=== PATIENT | female | born 1940 | race Caucasian/White ===

== ENCOUNTER 2023-04-15 13:24 | Emergency (ER) | payer MEDICARE, SELFPAY ==
[2023-04-15 13:40] VITALS: BP 102/51; PULSE 82; RESP 14; TEMP 36.6; O2SAT 100
--- NOTE | 2023-04-15 14:00 | ED.FEMALEGU ---
HPI - Female Genitourinary General Chief complaint: Urogenital-Female Stated complaint: Urinary Problems Time Seen by Provider: 04/15/23 13:55 Source: patient, RN notes reviewed and old records reviewed Mode of arrival: ambulatory Limitations: no limitations History of Present Illness HPI Narrative: 83 year old female who present to [facility] care with complaints of awakening last with chills but did not have a fever. Patient reports that she had yellowish looking loose stools for three days and she didn't take her home medications for 3 days. Patient reports that she has taken her medications for the past 3 days with crackers. Patient reports that her upper abdomen was burning and now it's in her lower abdomen.She denies any present fevers, chills,or sweats or any body aches.Patient has history of breast cancer and is cancer as far as she knows,denies any past colon problems such as colitis or diverticulitis. MD elicited complaint: other (abdominal pain diffuse) Onset (ago): day(s) (5-6 days) Location of symptoms: other (diffuse abdominal pain) Severity scale (1-10): 5 Quality of pain: burning and aching Related Data Home Medications Medication Instructions Recorded Confirmed magnesium 500 mg tablet 500 mg PO DAILY 04/15/23 04/15/23 melatonin 5 mg capsule 5 mg PO HS 04/15/23 04/15/23 montelukast 10 mg tablet 10 mg PO HS 04/15/23 04/15/23 pantoprazole 40 mg tablet,delayed 40 mg PO BID 04/15/23 04/15/23 release raloxifene 60 mg tablet 60 mg PO DAILY 04/15/23 04/15/23 trazodone 100 mg tablet 100 mg PO HS 04/15/23 04/15/23 Allergies Allergy/AdvReac Type Severity Reaction Status Date / Time Sulfa (Sulfonamide Allergy Unknown Unknown Verified 04/15/23 13:38 Antibiotics) tetanus toxoid, adsorbed Allergy Unknown Unknown Verified 04/15/23 13:38 codeine AdvReac Unknown Other Verified 04/15/23 23:03 Review of Systems Review of Systems: CONSTITUTIONAL: Denies fever,positive for chills last week, no sweats. CARDIOVASCULAR: Denies chest pain, palpitations, or edema. RESPIRATORY: Denies cough or dyspnea. GASTROINTESTINAL: positive for abdominal pain,no nausea, vomiting,positive for loose stools diarrhea no blood noted GENITOURINARY: Reports no dysuria, frequency, urgency. Denies flank pain or hematuria, states lower abdominal pain SKIN: Denies rash or itching. MUSCULOSKELETAL: Denies back pain or myalgia. Denies CVA tenderness NEUROLOGIC: Denies headache All systems reviewed & are unremarkable except as noted in HPI and below PMFSH Past Medical History Medical History History of breast cancer Surgical History Surgical History History of left mastectomy Family History Family History Mother Heart attack Breast cancer Father Diabetes mellitus Social History Social History Smoking status: Former smoker Alcohol intake: never Substance use: never Lack of Transportation: No Lack of Food: Never True Current Housing: I Have Housing Concerned About Future Housing: No Difficulty Paying Gas/Electric Bills: No Difficulty Paying for Meds: No Currently Unemployed: No Education: Master's Degree or Higher Difficulty w/ Childcare or Family Care: No Spiritual care concerns: No Comments At time of signature, agree with nursing past medical, surgical, social and family history. There is no relevant family history pertinent to the presenting complaint Exam Narrative: GENERAL: No acute distress. Well-appearing. Well-nourished. Alert and active. HEAD: Normocephalic, atraumatic. EYES: Pupils equal, round reactive to light. Extraocular movements intact. Conjunctivae without redness or drainage. EARS: Tympanic membranes without erythema. TM landmarks intact with good light reflex. Ear canals
== END 2023-04-15 15:54 | disposition short-term general hospital (02) ==
PROVIDERS: Emergency Provider Registered Nurse
DX: R10.11 Right upper quadrant pain (principal); Z87.891 Personal history of nicotine dependence; Z85.3 Personal history of malignant neoplasm of breast
CPT/HCPCS: 81003; 99212; G0463

== ENCOUNTER 2023-04-15 16:17 | Observation (INO) | payer MEDICARE, SELFPAY ==
--- NOTE | ~2023-04-15 | CT_ITS ---
EXAMINATION: CT abdomen pelvis w con DATE: 04/15/2023 19:28 INDICATION: Diffuse abdominal pain. TECHNIQUE: Computed tomography (CT) of the abdomen and pelvis was performed with 100 cc Omnipaque 350 intravenous contrast. The dose-length product was 240.58 mGy-cm. Automated exposure control and iter ative reconstruction technique were employed. COMPARISON: None. FINDINGS: Gallbladder is severely distended with gallbladder wall thickening and gallbladder wall deanna cifications, consistent with porcelain gallbladder. There is trace pericholecystic fluid. There is bi liary dilatation. No definite obstructing stone is identified. There is right middle lobe atelectasis /scarring. There is emphysema. There is a 7 mm right lower lobe nodule, image 15. There is bronchiect asis. There are air-fluid levels throughout the small bowel and colon which may represent ileus or en terocolitis. There is inflammation in the mesentery surrounding the distal colon in the pelvis. The l eft ureter is mildly dilated with urothelial enhancement, suspicious for ascending urinary tract infe ction. There are small subcentimeter hypodensities of the kidneys, too small to characterize, likely cysts. There are bilateral renal cysts. No free air or free fluid. Thickening of the sigmoid colon wi th mild surrounding inflammatory changes. Cannot exclude diverticulitis. There are anterior endplate compression fractures of L1 and L3 which are likely chronic. There is osteoarthritis of the hips. IMPRESSION: 1. Severely distended gallbladder with intramedullary and extrahepatic biliary dilatation. Cannot exc lude cholecystitis. Consider correlation with MRCP examination to exclude underlying obstructing mass . 2: Mildly thickened sigmoid colon with subtle surrounding inflammatory changes in the pelvis. Conside r acute cholecystitis. 3: Mild left hydronephrosis with urothelial enhancement, suspicious for ascending urinary tract infec tion. 4: Right lower lobe nodule measuring 7 mm. Recommend follow-up low dose CT chest in 6 months. Reviewed, dictated and finalized at location A. IMPRESSION: 1. Severely distended gallbladder with intramedullary and extrahepatic biliary dilatation. Cannot exclude cholecystitis. Consider correlation with MRCP examin ation to exclude underlying obstructing mass. 2: Mildly thickened sigmoid colon with subtle surrounding inflammatory changes in the pelvis. Consider acute cholecystitis. 3: Mild left hydronephrosis with urothelial enhancement, suspicious for ascendi ng urinary tract infection. 4: Right lower lobe nodule measuring 7 mm. Recommend follow-up low dose CT ches t in 6 months.
--- NOTE | ~2023-04-15 | MR_ITS ---
EXAMINATION: MR MRCP wo/w con/w 3D wo ind DATE: 04/16/2023 10:07 INDICATION: Evaluate dilated biliary ducts . Cholecystitis. TECHNIQUE: Magnetic resonance imaging (MRI) of the abdomen was performed without and with 13 mL Multi caden intravenous contrast. Sequences included coronal T2-weighted SS-FSE, coronal T2-weighted FS SS- FSE, coronal T2-weighted FS FIESTA, axial T2-weighted FS FIESTA, axial T2-weighted FIESTA, sagittal T 2-weighted SS-FSE, axial T1-weighted dual-echo FSPGR, axial T2-weighted SS-FSE, axial T1-weighted LAV A, axial T2-weighted STIR FSE. Thick-slab T2-weighted FRFSE-XL images were obtained for magnetic reso nance cholangiopancreatography (MRCP). Rotating maximum intensity projection 3-D reconstructions of t he volumetric data were created by the technologist. Postcontrast sequences included a time course of axial T1-weighted LAVA. COMPARISON: CT abdomen and pelvis dated 04/15/2023 FINDINGS: ABDOMEN MRI: Heart size is normal. Again seen is a wedge-shaped region of consolidation in the right middle lobe. No pericardial or pleural effusion. Multiple T2 hyperintense nonenhancing cysts measurin g 9 mm at the posterior aspect of segment 6 of the liver measuring up to 12 mm at the lateral aspect of the spleen, 1.8 cm at the right kidney and 6 mm at the left kidney. Pancreas and bilateral adrenal glands are normal. Marked dilation the gallbladder which measures 11.6 x 5.5 x 6.0 cm. There is some dependently layering sludge in the gallbladder with mild diffuse gallbladder wall thickening and min imal pericholecystic fluid consistent with acute cholecystitis. No dilated bowel to suggest obstructi on. Diverticulum arising from the third portion of the duodenum. Multiple diverticula are seen along the sigmoid colon without adjacent from trace stranding to suggest diverticulitis. No pathologically enlarged abdominal lymphadenopathy. Retroperitoneal edema tracking caudally along the anterior margin of the left psoas muscle and into the mesenteric fat in the medial posterior pelvis. Correlation wit h prior CT demonstrates thin rim of peripheral enhancement extending caudally along a tubular structu re within the region of edema which could represent either urothelial enhancement along the left uret er or small amount of contrast opacified blood at the periphery of a thrombosed left inferior mesente carli vein. Mild lumbar spondylosis with Schmorl's nodes along the inferior endplates of L2 and L3. Nor mal bone marrow signal throughout. ABDOMEN MRCP: The common hepatic duct is dilated to 13 mm and the common bile duct to 9 mm. There is a meniscus sig n with 5-6 mm low signal intensity intraluminal filling defect at the distal common bile duct suggest ing either an obstructing gallstone or sludge ball. Additional dilation of the cystic duct and mild d ilation of the left and right hepatic ducts but without significant intrahepatic biliary ductal dilat ion. The main pancreatic duct is dilated to 5-6 mm . IMPRESSION: 1. Obstructing stone versus sludge ball at the distalmost common bile duct with moderate extrahepatic biliary ductal dilation, mild dilation of the main pancreatic duct and likely secondary acute cholec ystitis. Consider ERCP for biliary decompression. 2. Left paraspinal retroperitoneal edema extending from the abdomen into the posterior pelvis surroun ding a peripheral enhancing tubular structure on prior CT which could represent either urothelial enh ancement along the ureter in the setting of ascending urinary tract infection or potentially a thromb osed inferior mesenteric vein. Favor the latter but would correlate with urinalysis. 3. Consolidation in the right middle lobe which could represent atelectasis or pneumonia. 4. Sigmoid diverticulosis. Reviewed, dictated and finalized at location A. 15:
--- NOTE | ~2023-04-15 | XR_ITS ---
XR ERCP ERCP procedure TECHNIQUE: Fluoroscopy used during ERCP procedure performed by [Tigre Emerson MD] on 04/17/2023. 134 seconds of fluoroscopy with 1 images captured. FINDINGS: Correlate with procedure note. IMPRESSION: Fluoroscopy used during ERCP procedure. Reviewed, dictated and finalized at location A.
[2023-04-15 16:19] VITALS: BP 110/50; PULSE 80; RESP 18; TEMP 36.8; O2SAT 100
[2023-04-15 17:25] VITALS: BP 128/74; PULSE 87; RESP 20; O2SAT 94
[2023-04-15 18:26] LABS: Appearance Urine Clear (Clear); Bacteria Urine None Seen /hpf; Bilirubin Urine Negative (Negative); Blood Urine Negative (Negative); Color Urine Yellow (Yellow); Glucose Urine UA Negative (Negative); Ketones Urine Negative (Negative); Leukocyte Esterase Ur Trace LEU/UL (Negative); Need Manual Microscopic Reviewed; Nitrate Urine Negative (Negative); Protein Urine Negative (Negative); RBC Urine 0-2 /hpf (0-2); Specific Grav Ur 1.004 (1.001-1.035); Squamous Epithelial Cell Urine None seen /hpf (Few); Urobilinogen Urine 0.2 mg/dL (<2.0); WBC Urine 0-5 /hpf; pH Urine 5.5 (5.0-9.0)
[2023-04-15 18:27] LABS: Add Urine Microscopic? YES
[2023-04-15 18:35] LABS: Hematocrit 36.1 % (37.0-47.0); Hemoglobin 11.8 g/dL (12.0-15.0); Immature Platelet Fraction Pct 8.2 % (0.9-11.2); Mean Corpuscular HGB Conc 32.7 g/dl (32-36); Mean Corpuscular Hemoglobin 31.5 pg (26-34); Mean Corpuscular Volume 96.3 fl (80-100); Platelet Count Result 100 k/mm3 (150-375); Red Blood Count 3.75 M/mm3 (4.2-5.4); Red Cell Distribution Width 13.8 % (11.5-14.5); White Blood Count 8.3 K/mm3 (4.5-10.0)
[2023-04-15 18:57] VITALS: BP 102/53; PULSE 70; RESP 16; O2SAT 99
[2023-04-15] MEDS: BELLADONNA ALK/PHENOB ELIX 10 ML, MAG HYDROX/ALUMINUM HYD/SIMETH 30 ML, LIDOCAINE HCL 2... PO (18:58)
[2023-04-15] MEDS: FAMOTIDINE 20 MG TABLET PO (18:58)
[2023-04-15 19:01] LABS: Alanine Aminotransferase 31 U/L (6-35); Albumin Level 3.9 g/dL (3.5-5.1); Alkaline Phosphatase 130 U/L (38-126); Anion Gap 9 mmol/L (8-16); Aspartate Amino Transferase 58 U/L (14-36); Bilirubin,Total 1.5 mg/dL (0.2-1.3); Blood Urea Nitrogen 26 mg/dL (7-17); Calcium 8.9 mg/dL (8.4-10.2); Carbon Dioxide 24 mmol/L (22-30); Chloride 93 mmol/L (98-107); Estimated CRCL calculation 25 ml/min; Estimated Glomerular Filt Rate 43; Glucose 71 mg/dL (65-110); Lipase 55 U/L (23-300); Potassium 4.3 mmol/L (3.4-5.0); Sodium 126 mmol/L (137-145)
[2023-04-15 19:09] LABS: Band Neutrophils Percent 5 % (0-6); Basophils Absolute Manual 0.08 K/mm3 (0.0-0.1); Basophils Percent Manual 1 % (0-1); Monocytes Absolute Manual 0.24 K/mm3 (0.1-0.90); Monocytes Percent Manual 3 % (3-9); Neutrophils Absolute Manual 5.56 K/mm3 (1.7-7.2); Neutrophils Percent Manual 62 % (46-73); Total Cells Counted 100
[2023-04-15 19:10] LABS: Hypochromasia 1+ (NORMAL); Platelet Estimate Decreased (Adequate); Schistocytes None Seen (NORMAL)
--- NOTE | 2023-04-15 21:09 | PM.IMHP ---
H&P: HPI History of Present Illness Date/Time: 04/15/23 21:09 Chief Complaint: Abdominal pain Narrative: This is an 83-year-old female with past medical history significant for history of breast cancer, left mastectomy, patient resides in [place] and she is visiting she presents to the emergency room due to diffuse abdominal pain for the last 4-5 days with no relieved, has had some diarrhea no bright red blood per rectum, no melena, no hematemesis, no fevers no rigors no chills. Patient was found to have an enlarged gallbladder with signs of likely infection. Patient has been admitted for further evaluation management and treatment. EXAMINATION: CT abdomen pelvis w con DATE: 04/15/2023 19:28 INDICATION: Diffuse abdominal pain. TECHNIQUE: Computed tomography (CT) of the abdomen and pelvis was performed with 100 cc Omnipaque 350 intravenous contrast. The dose-length product was 240.58 mGy-cm. Automated exposure control and iterative reconstruction technique were employed. COMPARISON: None. FINDINGS: Gallbladder is severely distended with gallbladder wall thickening and gallbladder wall calcifications, consistent with porcelain gallbladder. There is trace pericholecystic fluid. There is biliary dilatation. No definite obstructing stone is identified. There is right middle lobe atelectasis/scarring. There is emphysema. There is a 7 mm right lower lobe nodule, image 15. There is bronchiectasis. There are air-fluid levels throughout the small bowel and colon which may represent ileus or enterocolitis. There is inflammation in the mesentery surrounding the distal colon in the pelvis. The left ureter is mildly dilated with urothelial enhancement, suspicious for ascending urinary tract infection. There are small subcentimeter hypodensities of the kidneys, too small to characterize, likely cysts. There are bilateral renal cysts. No free air or free fluid. Thickening of the sigmoid colon with mild surrounding inflammatory changes. Cannot exclude diverticulitis. There are anterior endplate compression fractures of L1 and L3 which are likely chronic. There is osteoarthritis of the hips. IMPRESSION: 1. Severely distended gallbladder with intramedullary and extrahepatic biliary dilatation. Cannot exclude cholecystitis. Consider correlation with MRCP examination to exclude underlying obstructing mass. 2: Mildly thickened sigmoid colon with subtle surrounding inflammatory changes in the pelvis. Consider acute cholecystitis. 3: Mild left hydronephrosis with urothelial enhancement, suspicious for ascending urinary tract infection. 4: Right lower lobe nodule measuring 7 mm. Recommend follow-up low dose CT chest in 6 months. Review of Systems Review of Systems: Abdominal pain Constitutional: Constitutional: Denies chills, Denies fever(s) and Denies night sweats Eyes: Eyes: Denies change in vision ENT: Denies dysphagia, Denies vertigo, Denies dizziness and Denies odynophagia Cardiovascular: Cardiovascular: Denies chest pain at rest, Denies lightheadedness, Denies radiating jaw, neck or arm pain and Denies palpitations Respiratory: Respiratory: Denies chest congestion, Denies cough and Denies excessive phlegm production Gastrointestinal: Gastrointestinal: Denies melena, Denies hematochezia, Denies change in stool character, Denies coffee ground emesis, Denies dyspepsia, Denies heartburn, Reports diarrhea, Reports nausea and Reports vomiting Genitourinary: Genitourinary: Reports no additional female genitourinary complaints, Reports as per HPI and Denies dysuria Musculoskeletal: Musculoskeletal: Denies back pain and Denies joint swelling Integumentary/Breasts: Skin/Breast: Denies rash Neurologic: Denies focal weakness and Denies Sensory deficit (Neuro) Psychiatric: Psychiatric: Reports no additional psychiatric complaints and Reports as per HPI Endocrine: Endocrine: Denies cold intolerance, Denies fatigue, Denies heat intolerance and Denies
[2023-04-15 21:23] LABS: Lactic Acid Reflex 1.1 mmol/L (0.7-2.0)
[2023-04-15] MEDS: PIPERACILLN/TAZ 3.375GM/NS50ML 3.375 GM/50 ML BAG IVPB (21:42)
[2023-04-15 21:43] VITALS: BP 96/47; PULSE 84; RESP 16; O2SAT 98
--- NOTE | 2023-04-15 22:12 | ED.ABDPAIN ---
HPI - Abdominal Pain General Chief Complaint: Abdominal Pain Stated Complaint: abd pain Time Seen by Provider: 04/15/23 18:00 History of Present Illness HPI narrative: This is an 83-year-old female, with past history of left breast cancer status postresection, who presents to the emergency department complaining of diffuse burning abdominal pain for the past 6 days. The patient states 6 days ago, she developed subjective fevers and chills that improved however were followed by diffuse burning abdominal pain, rated 5/10. The patient denies any obvious aggravating or alleviating factors. She denies nausea or vomiting or recent trauma. Related Data Home Medications Medication Instructions Recorded Confirmed magnesium 500 mg tablet 500 mg PO DAILY 04/15/23 04/15/23 melatonin 5 mg capsule 5 mg PO HS 04/15/23 04/15/23 montelukast 10 mg tablet 10 mg PO HS 04/15/23 04/15/23 pantoprazole 40 mg tablet,delayed 40 mg PO BID 04/15/23 04/15/23 release raloxifene 60 mg tablet 60 mg PO DAILY 04/15/23 04/15/23 trazodone 100 mg tablet 100 mg PO HS 04/15/23 04/15/23 Allergies Allergy/AdvReac Type Severity Reaction Status Date / Time Sulfa (Sulfonamide Allergy Unknown Unknown Verified 04/15/23 13:38 Antibiotics) tetanus toxoid, adsorbed Allergy Unknown Unknown Verified 04/15/23 13:38 codeine AdvReac Unknown Other Verified 04/15/23 23:03 Review of Systems Review of Systems: CONSTITUTIONAL: Subjective fevers and chills denies sweats. CARDIOVASCULAR: Denies chest pain, palpitations, or edema. RESPIRATORY: Denies cough or dyspnea. GASTROINTESTINAL: Diffuse abdominal pain denies nausea, vomiting, or diarrhea. GENITOURINARY: Denies dysuria or hematuria. SKIN: Denies rash or itching. MUSCULOSKELETAL: Denies back pain, joint pain, or myalgia. NEUROLOGIC: Denies headache, numbness, dizziness, or weakness. PSYCHIATRIC: Denies anxiety or depression. [facility] Past Medical History Medical History History of breast cancer Surgical History Surgical History History of left mastectomy Family History Family History Mother Heart attack Breast cancer Father Diabetes mellitus Social History Social History Smoking status: Former smoker Alcohol intake: never Substance use: never Lack of Transportation: No Lack of Food: Never True Current Housing: I Have Housing Concerned About Future Housing: No Difficulty Paying Gas/Electric Bills: No Difficulty Paying for Meds: No Currently Unemployed: No Education: Master's Degree or Higher Difficulty w/ Childcare or Family Care: No Spiritual care concerns: No Exam Narrative: GENERAL: Well-developed, well-nourished, and in no acute distress. HEAD: Normocephalic, atraumatic. EYES: PERRLA and EOMI. CHEST: Clear to auscultation. No respiratory distress. No wheezes rales or rhonchi HEART: Regular rate and rhythm. No murmur heard. Normal peripheral pulses. ABDOMEN: Soft, diffuse mild abdominal tenderness, greater in the right upper quadrant without rebound or guarding, nondistended, normal active bowel sounds. No CVA tenderness to palpation EXTREMITIES: Normal range of motion. No edema. SKIN: Warm, dry, no rash. NEURO: No focal deficits. Alert and oriented x3. PSYCH: Normal mood and affect. Course Course Emergency Course: 21:12 - CBC demonstrates mild anemia with hemoglobin of 11.8 (unknown baseline). Chemistries demonstrate hyponatremia with sodium of 126 and elevated creatinine of 1.[address] UA unremarkable. CT abdomen pelvis demonstrates changes consistent with acute cholecystitis. I discussed the patient with general surgeon, Dr. Demarco who recommends the patient be made n.p.o., right upper quadrant ultrasound, IV antibiotics
[2023-04-15 22:37] VITALS: BP 103/50; PULSE 79; RESP 16; O2SAT 98
--- NOTE | 2023-04-15 22:53 | ADMGEN ---
This patient, Roxanne Antonio, was admitted to [facility] Surg Room 315-02. Patient/family oriented to hospital policies and general routines including ID bracelet, bed and alarms, visiting hours, pain management, procedures, bathroom and other care routines, personal items, smoking policy, room service/diet, and visiting hours. Information on how to activate the Rapid Response Team has been discussed. Patient/Family are encouraged to report perceived risks to care and to ask questions if they do not understand what they are told or what they should do.
[2023-04-15 23:08] VITALS: BP 113/47; PULSE 61; RESP 14; TEMP 37.4; O2SAT 95
[2023-04-15 23:09] VITALS: BMI 27.2
[2023-04-15] MEDS: LACTATED RINGERS 1,000 ML 125 ML IV CONT (23:27)
[2023-04-16] MEDS: traZODone HCL 50 MG TABLET 100 MG PO (00:53)
[2023-04-16] MEDS: MELATONIN 5 MG TABLET PO ×2 (00:53→20:15)
[2023-04-16 05:55] VITALS: BP 107/42; PULSE 75; RESP 13; TEMP 37.3; O2SAT 94
[2023-04-16 07:26] LABS: Basophils Absolute Auto 0.1 K/mm3 (0.0-0.1); Basophils Percent Auto 0.8 % (0.2-1.2); Eosinophils Percent Auto 0.4 % (0-4.4); Hematocrit 36.1 % (37.0-47.0); Hemoglobin 11.5 g/dL (12.0-15.0); Immature Granulocyte Absolute 0.06 K/mm3 (0.00-0.031); Immature Granulocyte Percent A 0.7 % (0-0.5); Immature Platelet Fraction Pct 6.7 % (0.9-11.2); Lymphocytes Absolute Auto 2.15 K/mm3 (0.9-3.2); Lymphocytes Percent Auto 25.9 % (18.3-44.2); Mean Corpuscular HGB Conc 31.9 g/dl (32-36); Mean Corpuscular Hemoglobin 31.6 pg (26-34); Mean Corpuscular Volume 99.2 fl (80-100); Mean Platelet Volume 11.5 fl (7.4-10.4); Monocytes Absolute Auto 0.9 K/mm3 (0.1-0.6); Monocytes Percent Auto 11.1 % (2.6-8.5); Neutrophils Absolute Auto 5.1 K/mm3 (1.3-6.7); Neutrophils Percent Auto 61.1 % (45.5-73.1); Platelet Count Result 109 k/mm3 (150-375); Red Blood Count 3.64 M/mm3 (4.2-5.4); Red Cell Distribution Width 13.8 % (11.5-14.5); White Blood Count 8.3 K/mm3 (4.5-10.0)
[2023-04-16 07:39] LABS: Anion Gap 11 mmol/L (8-16); Blood Urea Nitrogen 19 mg/dL (7-17); Calcium 8.5 mg/dL (8.4-10.2); Carbon Dioxide 19 mmol/L (22-30); Chloride 101 mmol/L (98-107); Estimated CRCL calculation 29 ml/min; Estimated Glomerular Filt Rate 43; Glucose 67 mg/dL (65-110); Sodium 131 mmol/L (137-145)
[2023-04-16] MEDS: LACTATED RINGERS 1,000 ML 125 ML IV CONT ×2 (07:40→17:01)
[2023-04-16 07:53] LABS: Atypical Lymphocytes Present; Platelet Estimate Decreased (Adequate); Schistocytes None Seen (NORMAL)
--- NOTE | 2023-04-16 09:54 | WPDCN ---
Assessment and Plan Assessment and plan (1) Diffuse abdominal pain: Code(s): R10.84 - Generalized abdominal pain Status: Acute Assessment and Plan: Patient has abnormal imaging of her gallbladder on CT scan. Dilation of bile duct is noted but she has no clinical symptoms suggestive of gallbladder disease. Came in complaining more of lower abdominal pain and there is some suggestion of colitis or diverticulitis of the sigmoid colon. Getting an MRCP of the gallbladder and bile ducts is a good idea and I will go ahead and order that. IV antibiotics for treatment of her colitis. She probably should get a colonoscopy done at some point when she returns to [place]. At this point I have low suspicion she has acute cholecystitis. Will follow. [facility] Data of Consult Date/Time: 04/16/23 09:54 Requesting Physician: Peg Hirsch MD Primary Care Provider: PHYSICIAN NOT ON STAFF Consult Narrative Reason for consult: Abnormal gallbladder findings on CT scan, cholelithiasis, lower abd pain. Narrative: Roxanne Antonio is a 83 year old female visiting from [place] who presents to the emergency room yesterday because of worsening lower abdominal pain. The pain is been going on for couple of weeks and initially was associated with some diarrhea which was nonbloody. She started feel low better so she went had made the trip to visit [place]. She denies have any prior issues with eating. There has been no nausea or vomiting with eating. She has been eating all foods without any pain. She has never had a colonoscopy in the past. Never been treated for or admitted to the hospital for diverticulitis. Which she had normal white blood cell count emergency room and normal liver enzymes. CT scan abdomen pelvis was done showing a very dilated gallbladder with some small gallstones but some dilatation of the intrahepatic and extrahepatic bile ducts. No bile duct stone was seen. There is some calcification of the gallbladder wall but no masses. Radiologist suggested MRCP to exclude mass causing the bile duct dilatation. Had a history of breast cancer but is currently cancer free as far she knows. Review of Systems Review of Systems: The remainder of the review of systems to include constitutional, HEENT, cardiovascular, respiratory, GI, , integumentary, musculoskeletal, endocrine, immunologic, hematologic, psychiatric, and neurologic are all negative except for which is mentioned above in the HPI. [facility] Past Medical History Medical History History of breast cancer Surgical History Surgical History History of left mastectomy Family History Family History Mother Heart attack Breast cancer Father Diabetes mellitus Social History Social History Smoking status: Former smoker Alcohol intake: never Substance use: never Lack of Transportation: No Lack of Food: Never True Current Housing: I Have Housing Concerned About Future Housing: No Difficulty Paying Gas/Electric Bills: No Difficulty Paying for Meds: No Currently Unemployed: No Education: Master's Degree or Higher Difficulty w/ Childcare or Family Care: No Spiritual care concerns: No Meds Home Medications and Allergies Home Medications Medication Instructions Recorded Confirmed Type magnesium 500 mg tablet 500 mg PO DAILY 04/15/23 04/15/23 History melatonin 5 mg capsule 5 mg PO HS 04/15/23 04/15/23 History montelukast 10 mg tablet 10 mg PO HS 04/15/23 04/15/23 History pantoprazole 40 mg tablet,delayed 40 mg PO BID 04/15/23 04/15/23 History release raloxifene 60 mg tablet 60 mg PO DAILY 04/15/23 04/15/23 History trazodone 100 mg tablet 100 mg PO HS 04/15/23 04/15/23 History Allergies Allergy/AdvReac
[2023-04-16] MEDS: PANTOPRAZOLE 40 MG TABLET PO ×2 (10:18→17:02)
[2023-04-16] MEDS: RALOXIFENE HCL (*CHEMO) 60 MG TABLET PO (10:18)
[2023-04-16] MEDS: MAGNESIUM OXIDE 400 MG TABLET PO (10:18)
--- NOTE | 2023-04-16 12:02 | PM.IMPN ---
Progress Note: A&P Assessment and Plan (1) Acute cholecystitis: Code(s): K81.0 - Acute cholecystitis Status: Acute (2) Diffuse abdominal pain: Code(s): R10.84 - Generalized abdominal pain Status: Acute (3) Hyponatremia: Code(s): E87.1 - Hypo-osmolality and hyponatremia Status: Acute Subjective Date/time seen: 04/16/23 12:02 Interval history: No complaints Exam Narrative: Laying in a stretcher Const: General: comfortable, no acute distress, well developed, alert, awake and average body habitus Nutritional Appearance: average body habitus Orientation/consciousness: patient oriented x3 HENMT: Head: normal to inspection, normocephalic and atraumatic Ears: hearing grossly normal bilaterally Face/Nose/Sinus: normal facial exam Face and sinus: normal facial exam Eyes: General: appearance normal, both eyes and all related structures Pupils: Equal, round and reactive pupils present EOM: EOMs intact bilaterally Neck: Neck: full ROM, no lymphadenopathy and no JVD Thyroid: thyroid normal Lymphatic: no lymphadenopathy noted Resp: Effort & Inspection: normal respiratory effort and able to speak in complete sentences Auscultation: clear to auscultation bilaterally Cardio: Jugular venous distension: no JVD Rate: regular rate Rhythm: regular rhythm Heart sounds: S1 normal heart sound present and S2 normal heart sound present GI: Inspection: normal to inspection Other: Gaytan positive : General: Yes deferred Skin: Rashes: no rashes Wounds: no wounds Neuro: General: patient oriented x3, CN's II-XI intact bilaterally and Unable to assess gait Cranial nerves: Yes CN's II-XII intact bilaterally and Yes Equal, round and reactive pupils present Cognition (Neuro): normal cognition Speech: normal speech Gait exam (Neuro): Unable to assess gait Motor exam (neuro): 5/5 motor strength present throughout Extrem: General: normal to inspection, full ROM, no joint enlargement and no pedal edema Objective Data Vital Signs Vital Signs: Vital Signs - 24 hr 04/15/23 16:19 04/15/23 17:25 04/15/23 18:57 Temperature 98.3 F Pulse Rate 80 87 70 Respiratory Rate 18 20 16 Blood Pressure 110/50 L 128/74 102/53 L Pulse Oximetry 100 94 99 Oxygen Delivery Room Air 04/15/23 21:43 04/15/23 22:37 04/15/23 23:08 Temperature 99.4 F Pulse Rate 84 79 61 Respiratory Rate 16 16 14 Blood Pressure 96/47 L 103/50 L 113/47 L Pulse Oximetry 98 98 95 Oxygen Delivery 04/16/23 05:55 Temperature 99.1 F Pulse Rate 75 Respiratory Rate 13 Blood Pressure 107/42 L Pulse Oximetry 94 Oxygen Delivery Intake/Output Intake/Output: Intake & Output 04/13/23 04/14/23 04/15/23 04/16/23 23:59 23:59 23:59 23:59 Intake Total 50 1000 Balance 50 1000 Meds/Results Medications: Active Medications Generic Name Dose Route Start Last Admin Trade Name Freq PRN Reason Stop Dose Admin Acetaminophen 650 mg 04/15/23 21:11 Acetaminophen 325 Mg Tablet PO Q4H PRN Mild Pain (1-3) or Fever Lactated Ringer's 1,000 mls @ 125 mls/hr 04/15/23 21:15 04/16/23 07:40 Lr - Lactated Ringers Iv IV CONT 125 mls/hr .Q8H AALIYAH Administration Magnesium Oxide 400 mg 04/16/23 09:00 04/16/23 10:18 Magnesium Oxide 400 Mg Tablet PO 400 mg DAILY AALIYAH Administration Melatonin 5 mg 04/16/23 00:25 04/16/23 00:53 Melatonin 5 Mg Tablet PO 5 mg HS AALIYAH Administration Montelukast Sodium 10 mg 04/16/23 00:25 04/16/23 00:53 Montelukast Sodium 10 Mg Tablet PO Not Given HS AALIYAH Morphine Sulfate 2 mg 04/15/23 21:11 Morphine Sulfate (*Crx) 4 Mg/Ml Inj IV PUSH Q2H PRN Pain Rated 7-10 Pantoprazole Sodium 40 mg 04/16/23 09:00 04/16/23 10:18 Pantoprazole 40 Mg Tablet PO 40 mg BID AALIYAH Administration Raloxifene HCl 60 mg 04/16/23 09:00 04/16/23 10:18 Raloxifene Hcl (*Chemo) 60 Mg Tablet PO 60 mg DAILY AALIYAH Administrat
[2023-04-16 13:44] VITALS: BP 104/50; PULSE 70; RESP 18; TEMP 37.6; O2SAT 97
[2023-04-16] MEDS: MONTELUKAST SODIUM 10 MG TABLET PO (20:15)
[2023-04-16 21:45] VITALS: BP 110/55; PULSE 84; RESP 17; TEMP 36.7; O2SAT 98
[2023-04-16 21:50] VITALS: O2SAT 97
[2023-04-17] VITALS (10 sets, daily range): BP systolic 109–138; BP diastolic 50–76; PULSE 64–96; RESP 13–20; TEMP 36.6–37.3; O2SAT 94–100
[2023-04-17] MEDS: LACTATED RINGERS 1,000 ML 125 ML IV CONT ×2 (05:21→23:10)
[2023-04-17] MEDS: RALOXIFENE HCL (*CHEMO) 60 MG TABLET PO (09:44)
[2023-04-17] MEDS: PANTOPRAZOLE 40 MG TABLET PO ×2 (09:44→20:19)
[2023-04-17] MEDS: MAGNESIUM OXIDE 400 MG TABLET PO (09:44)
[2023-04-17 10:09] LABS: Alanine Aminotransferase 22 U/L (6-35); Albumin Level 3.1 g/dL (3.5-5.1); Alkaline Phosphatase 98 U/L (38-126); Anion Gap 4 mmol/L (8-16); Aspartate Amino Transferase 27 U/L (14-36); Bilirubin,Total 0.7 mg/dL (0.2-1.3); Blood Urea Nitrogen 12 mg/dL (7-17); Calcium 8.6 mg/dL (8.4-10.2); Carbon Dioxide 27 mmol/L (22-30); Chloride 103 mmol/L (98-107); Estimated CRCL calculation 34 ml/min; Estimated Glomerular Filt Rate 53; Glucose 94 mg/dL (65-110); Potassium 3.9 mmol/L (3.4-5.0); Sodium 134 mmol/L (137-145)
--- NOTE | 2023-04-17 11:08 | PM.PNGS ---
Progress Note: A&P Assessment and Plan (1) Acute cholecystitis: Code(s): K81.0 - Acute cholecystitis Status: Acute Assessment and Plan: Patient has a normal white blood cell count and only some mild pain right upper quadrant. Gallbladder is very dilated however. Continue IV antibiotics and low-fat diet as tolerated for now. (2) Choledocholithiasis: Code(s): K80.50 - Calculus of bile duct without cholangitis or cholecystitis without obstruction Status: Acute Assessment and Plan: Gastroenterology has been consulted to see the patient regarding the choledocholithiasis. Would prefer that she have ERCP and extraction of common bile duct stone before proceeding with any attempt at laparoscopic cholecystectomy. Likely would be able to perform gallbladder surgery during this admission. Await evaluation by GI. Subjective Subjective Date/Time Seen: 04/17/23 11:08 Interval history: Patient has been stable. Still having mild diffuse abdominal pain. No nausea or vomiting. She did tolerate some liquids yesterday. MRCP yesterday showed a distal common bile duct stone which was likely causing the intra and extrahepatic bile duct dilatation. MRCP seen confirm evidence of some gallbladder wall thickening and gallbladder sludge or small stones. She has acute cholecystitis now. Of the sigmoid colon revealed no inflammatory changes although she did have some diverticulosis but no evidence of diverticulitis. White blood cell continues to be normal. Total bilirubin dropped from 1.5 to 0.7 today. Remainder liver enzymes are normal. Primary service has consulted gastroenterology to evaluate the common bile duct stone possible ERCP. Exam GI: Other: Abdomen soft and nondistended. Mild tenderness to palpation epigastric and right upper quadrant regions of the abdomen. No significant tenderness in the lower quadrants of the abdomen. No peritoneal signs and no masses are noted. Objective Data Vital Signs Vital Signs: Vital Signs - 24 hr 04/16/23 13:44 04/16/23 21:45 04/16/23 21:50 Temperature 37.6 C 36.7 C Pulse Rate 70 84 Respiratory Rate 18 17 Blood Pressure 104/50 L 110/55 L Pulse Oximetry 97 98 97 Oxygen Delivery Room Air 04/17/23 06:00 Temperature 36.7 C Pulse Rate 76 Respiratory Rate 18 Blood Pressure 122/50 L Pulse Oximetry 95 Oxygen Delivery Intake/Output Intake/Output: Intake & Output 04/14/23 04/15/23 04/16/23 04/17/23 23:59 23:59 23:59 23:59 Intake Total 50 1999 1000 Balance 50 1999 999 Meds/Results Medications: Active Medications Generic Name Dose Route Start Last Admin Trade Name Gregory PRN Reason Stop Dose Admin Acetaminophen 650 mg 04/15/23 21:11 Acetaminophen 325 Mg Tablet PO Q4H PRN Mild Pain (1-3) or Fever Lactated Ringer's 1,000 mls @ 125 mls/hr 04/15/23 21:15 04/17/23 08:06 Lr - Lactated Ringers Iv IV CONT Not Given .Q8H AALIYAH Magnesium Oxide 400 mg 04/16/23 09:00 04/17/23 09:44 Magnesium Oxide 400 Mg Tablet PO 400 mg DAILY AALIYAH Administration Melatonin 5 mg 04/16/23 00:25 04/16/23 20:15 Melatonin 5 Mg Tablet PO 5 mg HS AALIYAH Administration Montelukast Sodium 10 mg 04/16/23 00:25 04/16/23 20:15 Montelukast Sodium 10 Mg Tablet PO 10 mg HS AALIYAH Administration Morphine Sulfate 2 mg 04/15/23 21:11 Morphine Sulfate (*Crx) 4 Mg/Ml Inj IV PUSH Q2H PRN Pain Rated 7-10 Pantoprazole Sodium 40 mg 04/16/23 09:00 04/17/23 09:44 Pantoprazole 40 Mg Tablet PO 40 mg BID AALIYAH Administration Raloxifene HCl 60 mg 04/16/23 09:00 04/17/23 09:44 Raloxifene Hcl (*Chemo) 60 Mg Tablet PO 60 mg DAILY AALIYAH Administration Trazodone HCl 100 mg 04/15/23 23:58 04/16/23 00:53 Trazodone Hcl 50 Mg Tablet PO 100 mg HS PRN Administration Insomnia Radiology Results: ITS Impressions Abdomen/Pelvis CT 04/15/23 19:29 IMPRESSION: 1. Severely distended
--- NOTE | 2023-04-17 11:26 | PM.IMPN ---
Progress Note: A&P Assessment and Plan (1) Acute cholecystitis: Code(s): K81.0 - Acute cholecystitis Status: Acute Assessment and Plan: MRCP noted General surgery consult noted Await gi consult (2) Diffuse abdominal pain: Code(s): R10.84 - Generalized abdominal pain Status: Acute Assessment and Plan: Likely secondary to above Supportive care (3) Hyponatremia: Code(s): E87.1 - Hypo-osmolality and hyponatremia Status: Acute Assessment and Plan: Monitor Subjective Date/time seen: 04/17/23 11:26 Interval history: No complaints Exam Narrative: Laying in a stretcher Const: General: comfortable, no acute distress, well developed, alert, awake and average body habitus Nutritional Appearance: average body habitus Orientation/consciousness: patient oriented x3 HENMT: Head: normal to inspection, normocephalic and atraumatic Ears: hearing grossly normal bilaterally Face/Nose/Sinus: normal facial exam Face and sinus: normal facial exam Eyes: General: appearance normal, both eyes and all related structures Pupils: Equal, round and reactive pupils present EOM: EOMs intact bilaterally Neck: Neck: full ROM, no lymphadenopathy and no JVD Thyroid: thyroid normal Lymphatic: no lymphadenopathy noted Resp: Effort & Inspection: normal respiratory effort and able to speak in complete sentences Auscultation: clear to auscultation bilaterally Cardio: Jugular venous distension: no JVD Rate: regular rate Rhythm: regular rhythm Heart sounds: S1 normal heart sound present and S2 normal heart sound present GI: Inspection: normal to inspection Other: Gyatan positive : General: Yes deferred Skin: Rashes: no rashes Wounds: no wounds Neuro: General: patient oriented x3, CN's II-XI intact bilaterally and Unable to assess gait Cranial nerves: Yes CN's II-XII intact bilaterally and Yes Equal, round and reactive pupils present Cognition (Neuro): normal cognition Speech: normal speech Gait exam (Neuro): Unable to assess gait Motor exam (neuro): 5/5 motor strength present throughout Sensory Exam: No Sensory deficit (Neuro) Extrem: General: normal to inspection, full ROM, no joint enlargement and no pedal edema Objective Data Vital Signs Vital Signs: Vital Signs - 24 hr 04/16/23 13:44 04/16/23 21:45 04/16/23 21:50 Temperature 99.6 F 98.1 F Pulse Rate 70 84 Respiratory Rate 18 17 Blood Pressure 104/50 L 110/55 L Pulse Oximetry 97 98 97 Oxygen Delivery Room Air 04/17/23 06:00 Temperature 98.1 F Pulse Rate 76 Respiratory Rate 18 Blood Pressure 122/50 L Pulse Oximetry 95 Oxygen Delivery Intake/Output Intake/Output: Intake & Output 04/14/23 04/15/23 04/16/23 04/17/23 23:59 23:59 23:59 23:59 Intake Total 50 1999 999 Balance 50 1999 999 Meds/Results Medications: Active Medications Generic Name Dose Route Start Last Admin Trade Name Freq PRN Reason Stop Dose Admin Acetaminophen 650 mg 04/15/23 21:11 Acetaminophen 325 Mg Tablet PO Q4H PRN Mild Pain (1-3) or Fever Lactated Ringer's 1,000 mls @ 125 mls/hr 04/15/23 21:15 04/17/23 08:06 Lr - Lactated Ringers Iv IV CONT Not Given .Q8H AALIYAH Magnesium Oxide 400 mg 04/16/23 09:00 04/17/23 09:44 Magnesium Oxide 400 Mg Tablet PO 400 mg DAILY AALIYAH Administration Melatonin 5 mg 04/16/23 00:25 04/16/23 20:15 Melatonin 5 Mg Tablet PO 5 mg HS AALIYAH Administration Montelukast Sodium 10 mg 04/16/23 00:25 04/16/23 20:15 Montelukast Sodium 10 Mg Tablet PO 10 mg HS AALIYAH Administration Morphine Sulfate 2 mg 04/15/23 21:11 Morphine Sulfate (*Crx) 4 Mg/Ml Inj IV PUSH Q2H PRN Pain Rated 7-10 Pantoprazole Sodium 40 mg 04/16/23 09:00 04/17/23 09:44 Pantoprazole 40 Mg Tablet PO 40 mg BID AALIYAH Administration Raloxifene HCl 60 mg 04/16/23 09:00 04/17/23 09:44 Raloxifene Hcl (*Chemo) 60 Mg Tablet PO
--- NOTE | 2023-04-17 14:12 | WPDANESEPPF ---
Anes - Initial Pre Proc Eval Procedure: Operation Date: 04/17/23 15:15 Proposed Procedures p Endoscopic Retro Cholangiopancreatogram - Tigre Emerson MD Date/Time: 04/17/23 14:12 Surgeon: Peg Hirsch MD Pre Op Diagnosis: Acute Cholecystitis Patient Data Age: 83 Gender: F Height: 1.57 m Weight: 67.5 kg Last Vital Signs Temp 36.6 C 04/17/23 14:06 Pulse 72 04/17/23 14:06 Resp 16 04/17/23 14:06 BP 109/53 L 04/17/23 14:06 Pulse Ox 99 04/17/23 14:06 O2 Del Method Room Air 04/16/23 21:50 Allergies Allergy/AdvReac Type Severity Reaction Status Date / Time Sulfa (Sulfonamide Allergy Unknown Unknown Verified 04/15/23 13:38 Antibiotics) tetanus toxoid, adsorbed Allergy Unknown Unknown Verified 04/15/23 13:38 codeine AdvReac Unknown Other Verified 04/15/23 23:03 Home Medications Medication Instructions Recorded Confirmed Type magnesium 500 mg tablet 500 mg PO DAILY 04/15/23 04/15/23 History melatonin 5 mg capsule 5 mg PO HS 04/15/23 04/15/23 History montelukast 10 mg tablet 10 mg PO HS 04/15/23 04/15/23 History pantoprazole 40 mg tablet,delayed 40 mg PO BID 04/15/23 04/15/23 History release raloxifene 60 mg tablet 60 mg PO DAILY 04/15/23 04/15/23 History trazodone 100 mg tablet 100 mg PO HS 04/15/23 04/15/23 History Laboratory Tests 04/17/23 09:48 Sodium 134 L mmol/L (137-145) Potassium 3.9 mmol/L (3.4-5.0) Chloride 103 mmol/L (98-107) Carbon Dioxide 27 mmol/L (22-30) Anion Gap 4 L mmol/L (8-16) BUN 12 D mg/dL (7-17) Creatinine 1.00 mg/dL (0.7-1.0) Estim Creat Clear Calc 34 ml/min Estimated GFR 53 L (59 - ) Glucose 94 mg/dL (65-110) Calcium 8.6 mg/dL (8.4-10.2) Total Bilirubin 0.7 mg/dL (0.2-1.3) AST 27 U/L (14-36) ALT 22 U/L (6-35) Alkaline Phosphatase 98 U/L (38-126) Total Protein 6.0 L g/dL (6.3-8.2) Albumin 3.1 L g/dL (3.5-5.1) Patient hx anesthesia problems: none Family hx anesthesia problems: none Results Review: All pre-operative results and documents have been reviewed as part of the pre-operative evaluation. [facility] Past Medical History Medical History History of breast cancer Surgical History Surgical History History of left mastectomy Family History Family History Mother Heart attack Breast cancer Father Diabetes mellitus Social History Social History Smoking status: Former smoker Alcohol intake: never Substance use: never Lack of Transportation: No Lack of Food: Never True Current Housing: I Have Housing Concerned About Future Housing: No Difficulty Paying Gas/Electric Bills: No Difficulty Paying for Meds: No Currently Unemployed: No Education: Master's Degree or Higher Difficulty w/ Childcare or Family Care: No Spiritual care concerns: No Anes - Eval Final PreProcedure Day of Procedure 04/17/23 14:12 Patient weight: overweight Heart: regular rate and rhythm Lungs: decreased breath sounds Airway: Mallampati scale class II Neurological: alert and oriented Last oral intake: >/= 8 hours ASA classification: III Emergent: no Anesthetic plan: proceed Anesthesia type and monitoring: general ETT and standard monitoring Results Review: All pre-operative results and documents have been reviewed as part of the pre-operative evaluation. Informed Consent: The patient's anesthetic plan and its attendant risks and benefits were discussed with the patient/family/POA. Questions were solicited and answers provided to the satisfaction of the patient/family/POA.
[2023-04-17] MEDS: LACTATED RINGERS 1,000 ML 150 ML IV CONT (14:15)
--- NOTE | 2023-04-17 14:19 | WPDGICN ---
Assessment and Plan Assessment and plan (1) Choledocholithiasis: Code(s): K80.50 - Calculus of bile duct without cholangitis or cholecystitis without obstruction Status: Acute Assessment and Plan: will proceed with ercp, sphincterotomy and assess biliary system surgery on board (2) Acute cholecystitis: Code(s): K81.0 - Acute cholecystitis Status: Acute Assessment and Plan: will need interval cholecystectomy after ercp (3) Diffuse abdominal pain: Code(s): R10.84 - Generalized abdominal pain Status: Acute GI Consult Note Consult date/time: 04/17/23 14:19 Reason for consult: choledocholithiasis HPI: Roxanne Antonio is a 83 year old female visiting family and originally from [place]. She came to the emergency room because of worsening lower abdominal pain that started about 2 weeks ago, initially had some diarrhea.? She has been eating all foods without any pain.? She has never had a colonoscopy in the past.?She had normal white blood cell count emergency room and normal liver enzymes.? CT scan abdomen pelvis was done showing a very dilated gallbladder with some small gallstones but some dilatation of the intrahepatic and extrahepatic bile ducts. MRCP then showed diverticulosis, obstructing stone versus sludge ball at the distalmost common bile duct with moderate extrahepatic biliary ductal dilation, mild dilation of the main pancreatic duct and likely secondary acute cholecystitis. Consider ERCP for biliary decompression. Review of Systems Review of Systems: Abdominal pain Constitutional: Constitutional: Denies chills, Denies fever(s) and Denies night sweats Eyes: Eyes: Denies change in vision ENT: Denies dysphagia, Denies vertigo, Denies dizziness and Denies odynophagia Cardiovascular: Cardiovascular: Denies chest pain at rest, Denies lightheadedness, Denies radiating jaw, neck or arm pain and Denies palpitations Respiratory: Respiratory: Denies chest congestion, Denies cough and Denies excessive phlegm production Gastrointestinal: Gastrointestinal: Denies melena, Denies hematochezia, Denies change in stool character, Denies coffee ground emesis, Denies dyspepsia, Denies heartburn, Reports diarrhea, Reports nausea and Reports vomiting Genitourinary: Genitourinary: Reports no additional female genitourinary complaints, Reports as per HPI and Denies dysuria Musculoskeletal: Musculoskeletal: Denies back pain and Denies joint swelling Integumentary/Breasts: Skin/Breast: Denies rash Neurologic: Denies focal weakness and Denies Sensory deficit (Neuro) Psychiatric: Psychiatric: Reports no additional psychiatric complaints and Reports as per HPI Endocrine: Endocrine: Denies cold intolerance, Denies fatigue, Denies heat intolerance and Denies palpitations Hematologic/Lymphatic: Hematologic/Lymphatic: Reports no additional hematologic/lymphatic complaints and Reports as per HPI Allergic/Immunologic: Allergic/Immunologic: Reports no additional allergic/immunologic complaints and Reports as per HPI PMFSH Past Medical History Medical History History of breast cancer Surgical History Surgical History (Updated 04/18/23 @ 10:53 by Paulo Cancino MD) History of left mastectomy S/P ERCP Family History Family History Mother Heart attack Breast cancer Father Diabetes mellitus Social History Social History Smoking status: Former smoker Alcohol intake: never Substance use: never Lack of Transportation: No Lack of Food: Never True Current Housing: I Have Housing Concerned About Future Housing: No Difficulty Paying Gas/Electric Bills: No Difficulty Paying for Meds: No Currently Unemployed: No Education: Master's Degree or Higher Difficulty w/ Childcare or Family Care: No Spiritual c
[2023-04-17] MEDS: INDOMETHACIN 50 MG SUPP.RECT RECTAL (14:36)
[2023-04-17] MEDS: traZODone HCL 50 MG TABLET 100 MG PO (20:39)
[2023-04-17] MEDS: MONTELUKAST SODIUM 10 MG TABLET PO (20:39)
[2023-04-17] MEDS: MELATONIN 5 MG TABLET PO (20:39)
[2023-04-17] MEDS: ACETAMINOPHEN 325 MG TABLET 650 MG PO (20:44)
[2023-04-18] VITALS (15 sets, daily range): BP systolic 107–132; BP diastolic 47–90; PULSE 74–99; RESP 14–23; TEMP 36.2–37.7; O2SAT 92–100
[2023-04-18] MEDS: LACTATED RINGERS 1,000 ML 125 ML IV CONT ×2 (06:27→17:56)
[2023-04-18] MEDS: RALOXIFENE HCL (*CHEMO) 60 MG TABLET PO (08:36)
[2023-04-18] MEDS: MAGNESIUM OXIDE 400 MG TABLET PO (08:36)
[2023-04-18] MEDS: AMOXICILLIN/CLAVULANATE K 875-125 MG TAB 1 TABLET PO ×2 (08:36→20:23)
[2023-04-18] MEDS: PANTOPRAZOLE 40 MG TABLET PO ×2 (08:36→17:57)
[2023-04-18 09:01] LABS: Glucose Point of Care 113 mg/dl (65-105)
--- NOTE | 2023-04-18 09:51 | WPDHPUPDATE1 ---
History and Physical Update Update Date/Time: 04/18/23 09:51 History and Physical has been reviewed, including an updated exam of the patient. There are NO changes in the patient's condition. Risks, benefits, and alternatives have been discussed and questions answered. Patient agrees to proceed with procedure. will setup for interval cholecystectomy today
[2023-04-18] MEDS: BUPIVACAINE/EPINEPHRINE 0.25% 10 ML VIAL 30 ML INFILTRATE (10:53)
--- NOTE | 2023-04-18 10:53 | WPDANESEPPF ---
Anes - Initial Pre Proc Eval Procedure: Operation Date: 04/17/23 15:15 Proposed Procedures p Endoscopic Retro Cholangiopancreatogram - Tigre Emerson MD Operation Date: 04/18/23 11:00 Proposed Procedures p Laparoscopic Cholecystectomy - Michelle Martin MD Date/Time: 04/18/23 10:53 Surgeon: Peg Hirsch MD Pre Op Diagnosis: Acute Cholecystitis Patient Data Age: 83 Gender: F Height: 1.57 m Weight: 67.5 kg Last Vital Signs Temp 37.3 C 04/17/23 21:35 Pulse 72 04/17/23 21:35 Resp 13 04/17/23 21:35 BP 129/65 04/17/23 21:35 Pulse Ox 98 04/17/23 21:35 O2 Del Method Room Air 04/17/23 16:15 O2 Flow Rate 4 04/17/23 15:45 Allergies Allergy/AdvReac Type Severity Reaction Status Date / Time Sulfa (Sulfonamide Allergy Unknown Unknown Verified 04/17/23 14:15 Antibiotics) tetanus toxoid, adsorbed Allergy Unknown Unknown Verified 04/17/23 14:15 codeine AdvReac Unknown Other Verified 04/17/23 14:15 Home Medications Medication Instructions Recorded Confirmed Type magnesium 500 mg tablet 500 mg PO DAILY 04/15/23 04/15/23 History melatonin 5 mg capsule 5 mg PO HS 04/15/23 04/15/23 History montelukast 10 mg tablet 10 mg PO HS 04/15/23 04/15/23 History pantoprazole 40 mg tablet,delayed 40 mg PO BID 04/15/23 04/15/23 History release raloxifene 60 mg tablet 60 mg PO DAILY 04/15/23 04/15/23 History trazodone 100 mg tablet 100 mg PO HS 04/15/23 04/15/23 History Laboratory Tests 04/18/23 08:38 POC Capillary Glucose 113 H mg/dl (65-105) Patient hx anesthesia problems: none Family hx anesthesia problems: none Results Review: All pre-operative results and documents have been reviewed as part of the pre-operative evaluation. [facility] Past Medical History Medical History History of breast cancer Surgical History Surgical History (Updated 04/18/23 @ 10:53 by Paulo Cancino MD) History of left mastectomy S/P ERCP Family History Family History Mother Heart attack Breast cancer Father Diabetes mellitus Social History Social History Smoking status: Former smoker Alcohol intake: never Substance use: never Lack of Transportation: No Lack of Food: Never True Current Housing: I Have Housing Concerned About Future Housing: No Difficulty Paying Gas/Electric Bills: No Difficulty Paying for Meds: No Currently Unemployed: No Education: Master's Degree or Higher Difficulty w/ Childcare or Family Care: No Spiritual care concerns: No Anes - Eval Final PreProcedure Day of Procedure 04/18/23 10:53 Patient weight: overweight Heart: regular rate and rhythm Lungs: clear to auscultation Airway: Mallampati scale class II Neurological: alert and oriented Last oral intake: >/= 8 hours ASA classification: III Emergent: no Anesthetic plan: proceed Anesthesia type and monitoring: general ETT and standard monitoring Results Review: All pre-operative results and documents have been reviewed as part of the pre-operative evaluation. Informed Consent: The patient's anesthetic plan and its attendant risks and benefits were discussed with the patient/family/POA. Questions were solicited and answers provided to the satisfaction of the patient/family/POA.
[2023-04-18] MEDS: LACTATED RINGERS 1,000 ML 30 ML IV CONT (11:00)
[2023-04-18] MEDS: ceFAZolin 2 GM/D5W 50 ML 2 GM/50 ML BAG IVPB (11:08)
--- NOTE | 2023-04-18 12:24 | W.PM.PROC2 ---
Procedure Note - Detailed Date of Procedure 04/18/23 Pre-op Diagnosis Acute Cholecystitis Post-op Diagnosis Same Procedure Performed Laparoscopic cholecystectomy, extensive lysis of adhesions Surgeon Michelle Martin MD Anesthesia General Indications 83-year-old female presented to the hospital c/o upper abdominal pain associated with nausea and vomiting. Workup including imaging significant for cholecystitis, choledocholithiasis. Patient had ERCP with sphincterotomy and is now ready for interval cholecystectomy. Findings acute cholecystitis with cholelithiasis Description of Procedure The patient was taken to the operating room placed in the supine position. After adequate induction of general anesthesia, the patient was prepped and draped in normal sterile fashion. A time-out was then performed to verify the patient's identity as well as the procedure being performed. I then made a 5 mm incision in the infraumbilical region. Through this, a Veress needle was placed into the peritoneal cavity and CO2 gas was then insufflated. After adequate pneumoperitoneum was achieved, the Veress needle was removed and a 5 mm optiview trocar was placed through this incision under direct visualization. I then placed the laparoscope through this trocar site and under direct visualization placed a further 12 mm subxiphoid port as well as 2 additional 5 mm ports in the right upper abdomen. There was a large inflammatory mass in the right upper quadrant. There was an extensive amount of omental adhesions to this area and this was taken down both bluntly and sharply with the Bovie cautery. The gallbladder was then identified and was noted to be severely inflamed, distended, and full of gallstones. Given the amount of inflammation and distention, the gallbladder was decompressed with an ovarian needle. A copious amount of sludge was decompressed from the gallbladder. I was then able to place a grasper at the dome of the gallbladder and this was retracted anterior and cephalad up over the liver. A 2nd retractor was then placed at the infundibulum and retracted laterally, this allowed visualization of the triangle of Calot. I then was able to visualize the cystic duct in its entirety from its proximal insertion into the gallbladder, to its distal junction with the common hepatic/common bile duct junction. At this point, I carefully skeletonized the proximal cystic duct with the [place] dissector. I then clipped and transected the proximal cystic duct. Next I visualized the cystic artery. Again the artery was skeletonized, clipped, and transected. I then used the Bovie cautery to take down the peritoneal attachments of the gallbladder off the liver bed. This was difficult given the amount of inflammation in the posterior space. Once the gallbladder specimen was completely detached, an endo-pouch was placed through the 12 mm port site. I then placed the gallbladder specimen into the Endo pouch and removed the endo-pouch from the 12 mm port site. The specimen will now be sent to pathology for further review. I then copiously irrigated the right upper quadrant. Some oozing was noted in the liver bed and this was controlled with the bovie cautery. I then placed some hemostatic powder in the liver bed. Hemostasis was noted in the liver bed, the clips were noted to be in good position on both the cystic duct stump and the cystic artery stump. No other pathology was noted in the right upper quadrant. I then moved the laparoscope to the subxiphoid port. No iatrogenic injury or other pathology was noted in the lower abdomen. I then closed the 12 mm trocar site under direct visualization using the Carlos cone and 0 Vicryl suture. At this point, the abdomen was desufflated and all ports removed. All port sites were then closed with 4.O Monocryl subcuticular sutures. Dermabond was placed on each incision. The patient tolerated the procedure well, was extubated in the operatin
[2023-04-18] MEDS: fentaNYL CITRATE INJ (*CRX) 100 MCG/2 ML VIAL 25 MCG IV PUSH ×12 (12:32→13:33)
--- NOTE | 2023-04-18 13:17 | SUR.PHASEI ---
Addendum entered by Lindsay Bates RN 04/18/23 13:57: Pt. can then transfer to floor. VS Stable. Original Note: COLEEN Barrow at bedside. New orders for RN to give 100 more mcg of Fentanyl.
[2023-04-18] MEDS: MORPHINE SULFATE (*CRX) 4 MG/ML INJ 2 MG IV PUSH ×4 (14:56→23:12)
[2023-04-18] MEDS: ONDANSETRON INJ 4 MG/2 ML VIAL IV PUSH (15:30)
[2023-04-18] MEDS: traMADol HCL (*CRX) 50 MG TABLET PO (15:32)
[2023-04-18] MEDS: MELATONIN 5 MG TABLET PO (20:23)
[2023-04-18] MEDS: MONTELUKAST SODIUM 10 MG TABLET PO (20:23)
[2023-04-19] VITALS: BP 109/46; PULSE 103; RESP 13; TEMP 37.4; O2SAT 92
[2023-04-19 00:03] VITALS: BP 109/46; PULSE 103; RESP 13; TEMP 37.4; O2SAT 92
[2023-04-19] MEDS: LACTATED RINGERS 1,000 ML 125 ML IV CONT (01:59)
[2023-04-19] MEDS: traMADol HCL (*CRX) 50 MG TABLET PO ×3 (05:48→13:52)
[2023-04-19 06:24] VITALS: BP 121/55; PULSE 100; RESP 13; TEMP 37.1; O2SAT 90
--- NOTE | 2023-04-19 07:38 | PM.PNGS ---
Progress Note: A&P Assessment and Plan (1) Acute cholecystitis: Code(s): K81.0 - Acute cholecystitis Status: Acute Assessment and Plan: doing well, ADAT, encourage OOB/IS, home soon Subjective Subjective Date/Time Seen: 04/19/23 07:38 Interval history: feels ok, some incisional soreness debra c movt, homero full liquids Review of Systems Review of Systems: All systems reviewed & are unremarkable except as noted in HPI and below Exam Const: General: cooperative, comfortable and no acute distress Resp: Auscultation: clear to auscultation bilaterally Cardio: Rate: regular rate Rhythm: regular rhythm GI: Inspection: normal to inspection, distended and incision GI Palp: Yes abdominal tenderness, Yes Soft to palpation, Yes Tenderness to palpation present (GI), No Guarding due to palpation present (GI) and No Rigid due to palpation Objective Data Vital Signs Vital Signs: Vital Signs - 24 hr 04/18/23 12:25 04/18/23 11:00 04/18/23 12:30 Temperature 36.5 C Pulse Rate 94 74 85 Respiratory Rate 23 H 20 20 Blood Pressure 125/54 L 107/52 L 128/61 Pulse Oximetry 99 97 100 Oxygen Delivery Simple Face Mask Room Air Simple Face Mask Oxygen Flow Rate 10 10 04/18/23 12:45 04/18/23 13:00 04/18/23 13:15 Temperature Pulse Rate 83 89 85 Respiratory Rate 17 19 21 H Blood Pressure 118/75 128/61 125/54 L Pulse Oximetry 93 92 93 Oxygen Delivery Room Air Room Air Room Air Oxygen Flow Rate 04/18/23 13:30 04/18/23 13:40 04/18/23 13:55 Temperature Pulse Rate 88 90 90 Respiratory Rate 22 H 18 20 Blood Pressure 122/55 L 130/57 L 132/60 Pulse Oximetry 93 97 95 Oxygen Delivery Room Air Nasal Cannula Nasal Cannula Oxygen Flow Rate 2 2 04/18/23 14:10 04/18/23 14:22 04/18/23 14:30 Temperature Pulse Rate 93 92 92 Respiratory Rate 20 20 22 H Blood Pressure 120/69 124/56 L 112/90 Pulse Oximetry 98 98 98 Oxygen Delivery Nasal Cannula Nasal Cannula Nasal Cannula Oxygen Flow Rate 2 2 2 04/18/23 16:00 04/18/23 08:55 04/18/23 20:00 Temperature 36.2 C L 37.7 C H Pulse Rate 85 99 Respiratory Rate 16 14 Blood Pressure 109/55 L 115/47 L Pulse Oximetry 100 98 93 Oxygen Delivery Room Air Oxygen Flow Rate 04/18/23 20:00 04/19/23 00:00 04/19/23 00:03 Temperature 37.4 C 37.4 C Pulse Rate 99 103 H 103 H Respiratory Rate 14 13 13 Blood Pressure 109/46 L 109/46 L Pulse Oximetry 93 92 92 Oxygen Delivery Room Air Oxygen Flow Rate 04/19/23 06:24 Temperature 37.1 C Pulse Rate 100 Respiratory Rate 13 Blood Pressure 121/55 L Pulse Oximetry 90 Oxygen Delivery Oxygen Flow Rate Intake/Output Intake/Output: Intake & Output 04/16/23 04/17/23 04/18/23 04/19/23 23:59 23:59 23:59 23:59 Intake Total 1999 2200 2850 1500 Balance 1999 2200 2850 1500 Meds/Results Medications: Active Medications Generic Name Dose Route Start Last Admin Trade Name Freq PRN Reason Stop Dose Admin Acetaminophen 650 mg 04/15/23 21:11 04/17/23 20:44 Acetaminophen 325 Mg Tablet PO 650 mg Q4H PRN Administration Mild Pain (1-3) or Fever Amoxicillin/Clavulanate Potassium 1 tablet 04/18/23 09:00 04/18/23 20:23 Amoxicillin/Clavulanate K 875-125 Mg Tab PO 1 tablet Q12HR AALIYAH Administration Magnesium Oxide 400 mg 04/16/23 09:00 04/18/23 08:36 Magnesium Oxide 400 Mg Tablet PO 400 mg DAILY AALIYAH Administration Melatonin 5 mg 04/16/23 00:25 04/18/23 20:23 Melatonin 5 Mg Tablet PO 5 mg HS AALIYAH Administration Montelukast Sodium 10 mg 04/16/23 00:25 04/18/23 20:23 Montelukast Sodium 10 Mg Tablet PO 10 mg HS AALIYAH Administration Morphine Sulfate 2 mg 04/18/23 23:22 Morphine Sulfate (*Crx) 2 Mg/Ml Inj IV PUSH Q2H PRN Pain Rated 7-10 Ondansetron HCl 4 mg 04/18/23 15:02 04/18/23 15:30 Ondansetron Inj 4 Mg/2 Ml Vial IV PUSH 4 mg Q6H PRN Administration Nausea And Vomiting Pantoprazole Sodium 40 mg 04/16/23
[2023-04-19] MEDS: PANTOPRAZOLE 40 MG TABLET PO (09:50)
[2023-04-19] MEDS: RALOXIFENE HCL (*CHEMO) 60 MG TABLET PO (09:50)
[2023-04-19] MEDS: MAGNESIUM OXIDE 400 MG TABLET PO (09:50)
[2023-04-19] MEDS: AMOXICILLIN/CLAVULANATE K 875-125 MG TAB 1 TABLET PO (10:11)
--- NOTE | 2023-04-19 11:23 | PM.DS ---
DS: Admitting Diagnosis Discharge Date April 19, 2020 Admitting Diagnosis Acute cholecystitis DS: Discharge Diagnosis Discharge Diagnosis (1) Acute cholecystitis: Code(s): K81.0 - Acute cholecystitis Status: Acute Assessment and Plan: MRCP noted General surgery consult noted Await gi consult (2) Diffuse abdominal pain: Code(s): R10.84 - Generalized abdominal pain Status: Acute Assessment and Plan: Likely secondary to above Supportive care (3) Hyponatremia: Code(s): E87.1 - Hypo-osmolality and hyponatremia Status: Acute Assessment and Plan: Monitor DS: Summary Hospital Course Hospital Course: Admitted for acute cholecystitis status post ERCP with stone removal. Patient underwent cholecystectomy. Doing well can be discharged. Follow up with surgery Time Spent with Patient Time attestation: Total time spent providing and/or coordinating discharge services: Exam Narrative: Laying in a stretcher Const: General: comfortable, no acute distress, well developed, alert, awake and average body habitus Nutritional Appearance: average body habitus Orientation/consciousness: patient oriented x3 HENMT: Head: normal to inspection, normocephalic and atraumatic Ears: hearing grossly normal bilaterally Face/Nose/Sinus: normal facial exam Face and sinus: normal facial exam Eyes: General: appearance normal, both eyes and all related structures Pupils: Equal, round and reactive pupils present EOM: EOMs intact bilaterally Neck: Neck: full ROM, no lymphadenopathy and no JVD Thyroid: thyroid normal Lymphatic: no lymphadenopathy noted Resp: Effort & Inspection: normal respiratory effort and able to speak in complete sentences Auscultation: clear to auscultation bilaterally Cardio: Jugular venous distension: no JVD Rate: regular rate Rhythm: regular rhythm Heart sounds: S1 normal heart sound present and S2 normal heart sound present GI: Inspection: normal to inspection Other: Gaytan positive : General: Yes deferred Skin: Rashes: no rashes Wounds: no wounds Neuro: General: patient oriented x3, CN's II-XI intact bilaterally and Unable to assess gait Cranial nerves: Yes CN's II-XII intact bilaterally and Yes Equal, round and reactive pupils present Cognition (Neuro): normal cognition Speech: normal speech Gait exam (Neuro): Unable to assess gait Motor exam (neuro): 5/5 motor strength present throughout Sensory Exam: No Sensory deficit (Neuro) Extrem: General: normal to inspection, full ROM, no joint enlargement and no pedal edema DS: Data Data Completed and Pending Pending studies at discharge: Pending at discharge 04/17/23 14:55 Surgical [PTH] Routine 04/18/23 11:16 Surgical [PTH] Routine Discharge Plan Discharge Attending physician on discharge: Bhavik Andre Consulting providers: Raji Carlton; Tigre Emerson Discharging Clinician: Bhavik Andre Patient Disposition: Home, Self-Care Activity: other - see discharge instructions Diet: other - see discharge instructions Wound Care Instructions: other - see discharge instructions Discharge Instructions: DISCHARGE INSTRUCTION SHEET FOR HERNIA, GALLBLADDER AND APPENDIX SURGERIES DR. GREEN PATIENT TO TAKE HOME 1. May shower in 24 hours, no soaking in bath x 2weeks. 2. Call office for: Wound increasingly painful or bleeding Vomiting Fever of greater than 101 degrees 3. If no bowel movement for three days, take 1 oz. (30 ml) Milk of Magnesia or MiraLax 17g 1 to 2 times daily. 4. No heavy lifting > 10-15 pounds x 6 weeks for hernia repairs and 2 weeks for laparoscopic cholecystectomy or appendectomy. 5. No driving for 3 days or while taking narcotic pain medications. 6. Ice to surgical site for 48 hours (30 min on, then 30 min off). 7. Up walking 10-30 minutes three time
--- NOTE | 2023-04-19 11:31 | WPDGIPROGNO ---
Progress Note: A&P Assessment and Plan (1) Biliary sludge: Code(s): K83.8 - Other specified diseases of biliary tract Status: Acute Assessment and Plan: s/p ercp, only found sludge without stones then lap tony yesterday tolerating liquid diet will need follow-up with surgery and pcp (2) Acute cholecystitis: Code(s): K81.0 - Acute cholecystitis Status: Acute (3) Diffuse abdominal pain: Code(s): R10.84 - Generalized abdominal pain Status: Acute Subjective Date/time seen: 04/19/23 11:31 Interval history: she is tolerating liquid diet, some abdominal pain Review of Systems Review of Systems: All systems reviewed & are unremarkable except as noted in HPI and below Exam Const: General: cooperative, comfortable and no acute distress HENMT: Face/Nose/Sinus: Normal nares present Eyes: Sclera: sclerae normal Neck: Neck: supple Resp: Auscultation: clear to auscultation bilaterally Cardio: Rate: regular rate Rhythm: regular rhythm GI: Inspection: normal to inspection, distended and incision GI Palp: Yes abdominal tenderness, Yes Soft to palpation, Yes Tenderness to palpation present (GI), No Guarding due to palpation present (GI) and No Rigid due to palpation Skin: General skin exam: normal color Neuro: Speech: normal speech Motor exam (neuro): 5/5 motor strength present throughout Objective Data Vital Signs Vital Signs: Vital Signs - 24 hr 04/18/23 12:25 04/18/23 12:30 04/18/23 12:45 Temperature 97.7 F Pulse Rate 94 85 83 Respiratory Rate 23 H 20 17 Blood Pressure 125/54 L 128/61 118/75 Pulse Oximetry 99 100 93 Oxygen Delivery Simple Face Mask Simple Face Mask Room Air Oxygen Flow Rate 10 10 04/18/23 13:00 04/18/23 13:15 04/18/23 13:30 Temperature Pulse Rate 89 85 88 Respiratory Rate 19 21 H 22 H Blood Pressure 128/61 125/54 L 122/55 L Pulse Oximetry 92 93 93 Oxygen Delivery Room Air Room Air Room Air Oxygen Flow Rate 04/18/23 13:40 04/18/23 13:55 04/18/23 14:10 Temperature Pulse Rate 90 90 93 Respiratory Rate 18 20 20 Blood Pressure 130/57 L 132/60 120/69 Pulse Oximetry 97 95 98 Oxygen Delivery Nasal Cannula Nasal Cannula Nasal Cannula Oxygen Flow Rate 2 2 2 04/18/23 14:22 04/18/23 14:30 04/18/23 16:00 Temperature 97.2 F L Pulse Rate 92 92 85 Respiratory Rate 20 22 H 16 Blood Pressure 124/56 L 112/90 109/55 L Pulse Oximetry 98 98 100 Oxygen Delivery Nasal Cannula Nasal Cannula Oxygen Flow Rate 2 2 04/18/23 20:00 04/18/23 20:00 04/19/23 00:00 Temperature 99.9 F H 99.3 F Pulse Rate 99 99 103 H Respiratory Rate 14 14 13 Blood Pressure 115/47 L 109/46 L Pulse Oximetry 93 93 92 Oxygen Delivery Room Air Oxygen Flow Rate 04/19/23 00:03 04/19/23 06:24 04/19/23 08:00 Temperature 99.3 F 98.8 F Pulse Rate 103 H 100 Respiratory Rate 13 13 Blood Pressure 109/46 L 121/55 L Pulse Oximetry 92 90 Oxygen Delivery Room Air Oxygen Flow Rate Intake/Output Intake/Output: Intake & Output 04/16/23 04/17/23 04/18/23 04/19/23 23:59 23:59 23:59 23:59 Intake Total 1999 2200 2850 1740 Balance 1999 2200 2850 1740 Meds/Results Medications: Active Medications Generic Name Dose Route Start Last Admin Trade Name Gregory PRN Reason Stop Dose Admin Acetaminophen 650 mg 04/15/23 21:11 04/17/23 20:44 Acetaminophen 325 Mg Tablet PO 650 mg Q4H PRN Administration Mild Pain (1-3) or Fever Amoxicillin/Clavulanate Potassium 1 tablet 04/18/23 09:00 04/19/23 10:11 Amoxicillin/Clavulanate K 875-125 Mg Tab PO 1 tablet Q12HR AALIYAH Administration Magnesium Oxide 400 mg 04/16/23 09:00 04/19/23 09:50 Magnesium Oxide 400 Mg Tablet PO 400 mg DAILY AALIYAH Administration Melatonin 5 mg 04/16/23 00:25 04/18/23 20:23 Melatonin 5 Mg Tablet PO 5 mg HS AALIYAH Administration Montelukast Sodium 10 mg 04/16/23 00:25 04/18/23 20:23 Montelukast Sodium 10 Mg Tablet PO 10
[2023-04-19 12:00] VITALS: BP 121/50; PULSE 99; RESP 18; TEMP 37.2; O2SAT 97
[2023-04-19 13:25] VITALS: O2SAT 96
== END 2023-04-19 14:35 | disposition home or self-care (01) ==
LOC: ANHED 18:38 → ANH3MEDSUR 04-16 00:08
PROVIDERS: Internal Medicine Gastroenterology; Surgery; Admitting Provider Internal Medicine; Emergency Provider Preventive Medicine Aerospace Medicine; Visit Provider Chiropractor
PROC: (CPT 43260; principal; 2023-04-17 15:15)
PROC: 0FT44ZZ Resection of Gallbladder, Percutaneous Endoscopic Approach (ICD-10-PCS; CPT 47562; principal; 2023-04-18 11:00)
DX: K81.0 Acute cholecystitis (principal); K31.1 Adult hypertrophic pyloric stenosis; E87.1 Hypo-osmolality and hyponatremia; N13.30 Unspecified hydronephrosis; Z79.899 Other long term (current) drug therapy; R10.84 Generalized abdominal pain; Z85.3 Personal history of malignant neoplasm of breast; Z90.12 Acquired absence of left breast and nipple; Z87.891 Personal history of nicotine dependence; Z80.3 Family history of malignant neoplasm of breast
CPT/HCPCS: 43261; 43262; 47562; 49329; 36415; 74177; 74183; 74329; 76376; 80048; 80053; 81001; 81003; 82948; 83605; 83690; 85025; 85055; 88304; 88305; 96365; 96375; 99285; A9270; A9577; C1726; G0378; J0690; J0696; J2270; J2405; J2543; J2704; J3010; J7120; Q9966; Q9967